=== PATIENT | male | born 1945 | race Caucasian/White ===

== ENCOUNTER → 2016-02-25 | Outpatient (CLI) | payer OTHER ==
[~2016-02-25] MED LIST: AMLO2.5T PO; ASPI81TA28 PO; METO1TAB69 PO; PANT1TAB48 PO; ROSU40TA PO
[2016-02-25 15:40] LABS: BLOOD UREA NITROGEN 14 mg/dl (7-18)
--- NOTE | 2016-02-25 15:44 | DIAGNOSTIC IMAGING REPORT ---
CT SCAN OF THE ABDOMEN AND PELVIS WITHOUT CONTRAST CLINICAL HISTORY: FLANK PAIN, HEMATURIA COMPARISON STUDY: No previous studies for comparison. TECHNIQUE: CT scan of the abdomen and pelvis was performed from the lung bases to the proximal femurs. Images are reviewed in the axial, sagittal, and coronal planes. IV contrast was not administered for this examination. CT DOSE: 505.13 mGy.cm FINDINGS: Lower chest: There are minor basilar atelectatic changes. Liver: There is scattered hepatic hypodensities the largest of which approach water attenuation likely represent cysts. Gallbladder: Unremarkable. Spleen: Normal in size and attenuation. Pancreas: Unremarkable. Adrenal glands: Unremarkable. Kidneys: There is a 2 mm nonobstructing upper pole left renal calculus. There is left-sided hydronephrosis and perinephric stranding. There is left-sided ureteral dilatation. There is a 2 mm nonobstructing lower pole right renal calculus. Evaluation the pelvis is unfortunately limited due to streak artifact from a total left hip arthroplasty. There is a suspected 3 mm distal left ureteral calculus. Bowel: There are no transition zones indicate bowel obstruction. The appendix appears normal. Mildly prominent fluid-filled small bowel loops likely indicating a ileus. There are multiple sigmoid diverticula present. There is minimal stranding within the perisigmoid fat. I suspect that this is secondary to periureteral edema as opposed to diverticulitis.. Peritoneum: There is no intraperitoneal free air or abdominal ascites. Vasculature: The abdominal aorta is normal in course and caliber. Adenopathy: None. Pelvic viscera: The bladder, and pelvic viscera are unremarkable. Skeletal structures: No destructive osseous lesions are seen. IMPRESSION: 1. Bilateral nephrolithiasis 2. Left-sided hydronephrosis and hydroureter 3. Probable 3 mm distal left ureteral calculus. (Pelvis partially obscured due to artifact from total left hip arthroplasty) 4. Extensive diverticulosis. Minor infiltration of the peridiverticular fat is likely secondary periureteral edema as opposed to diverticulitis 5. Normal appendix 6. Suspected mild ileus. There are no transition zones to indicate a bowel obstruction. No free air. Electronically signed by: Sonny Reynoso M.D. 02/25/2016 3:42 PM Dictated Date/Time: 02/25/2016 3:32 PM
== END | disposition home or self-care (01) ==
LOC: C.CTS 14:32
PROVIDERS: ATTEND Family Medicine
DX: R31.9 Hematuria, unspecified (principal); N20.0 Calculus of kidney; N13.30 Unspecified hydronephrosis; N13.4 Hydroureter; K57.90 Diverticulosis of intestine, part unspecified, without perforation or abscess without bleeding

== ENCOUNTER 2016-08-29 23:35 | Inpatient (IN) | payer OTHER ==
[~2016-08-29] VITALS: Ht 154.9 cm; Wt 75.3 kg
[~2016-08-29 23:35] MED LIST changes: -METO1TAB69 PO; -ROSU40TA PO
[2016-08-29] MEDS ORDERED: SODIUM CHLORIDE 0.9% 1000ML 1,000 ML IV STA (23:50)
[2016-08-29] MEDS ORDERED: SODIUM CHLORIDE 0.9% 250ML 250 ML IV STA (23:50)
[2016-08-29] MEDS ORDERED: MoRPHine SULFATE 4 MG/ML 1 ML CARP\\VIAL IV STA (23:50)
[2016-08-29] MEDS ORDERED: ONDANSETRON INJ 2 MG/ML 2 ML VIAL IV STA (23:50)
[2016-08-30] MEDS ORDERED: OPTIRAY 320 IV PRN
[2016-08-30 00:01] LABS: BASO % 0.2 %; BASO ABS # 0.02 K/uL (0-0.2); COMPLETE YES; EOS % 1.5 %; HEMATOCRIT 45.5 % (42-52); IG% 0.2 %; LYMPH % 19.4 %; LYMPH ABS # 1.93 K/uL (1.2-3.4); MEAN CELL VOLUME 85.2 fL (80-100); MEAN CORPUSCULAR HEMOGLOBIN 27.9 pg (25-34); MEAN CORPUSCULAR HGB CONC 32.7 g/dl (32-36); MEAN PLATELET VOLUME 10.5 fL (7.4-10.4); MONO % 4.1 %; NEUT % 74.6 %; PLATELET COUNT 210 K/uL (130-400); RED BLOOD COUNT 5.34 M/uL (4.7-6.1); WHITE BLOOD COUNT 9.95 K/uL (4.8-10.8)
[2016-08-30 00:04] LABS: URINE APPEARANCE CLEAR (CLEAR); URINE BILIRUBIN NEG (NEG); URINE COLOR YELLOW; URINE NITRITE NEG (NEG); URINE PH 6.5 (4.5-7.5); URINE SPECIFIC GRAVITY 1.014 (1.000-1.030); UROBILINOGEN NEG (NEG)
[2016-08-30 00:05] LABS: MANUAL MICROSCOPIC REQUIRED? NO; REVIEW REQ? NO
[2016-08-30 00:20] LABS: ISTAT CREATININE 1.4 mg/dl (0.6-1.3); ISTAT HEMOGLOBIN 16.3 g/dl (14.0-18.0); ISTAT IONIZED CALCIUM 1.15 mmol/l (1.12-1.32)
[2016-08-30 00:21] LABS: ALT/SGPT 88 U/L (12-78); BLOOD UREA NITROGEN 20 mg/dl (7-18); BUN/CREATININE RATIO 13.5 (10-20); CALCIUM 8.5 mg/dl (8.5-10.1); CARBON DIOXIDE 26 mmol/L (21-32); CHLORIDE 108 mmol/L (98-107); GLUCOSE 124 mg/dl (70-99); POTASSIUM 4.1 mmol/L (3.5-5.1); SODIUM 141 mmol/L (136-145)
[2016-08-30 00:23] LABS: ALKALINE PHOSPHATASE 115 U/L (45-117); AST/SGOT 43 U/L (15-37)
[2016-08-30] MEDS ORDERED: HYDROmorphone INJ 1 MG/ML SYR IV STA ×2 (00:26→01:44)
--- NOTE | 2016-08-30 00:31 | EMERGENCY ROOM VISIT NOTE ---
ED Visit Note First contact with patient: 23:44 This Patient was discussed with the physician casino assistant manager, ROEL Bowen. The pertinent historical and physical exam findings were confirmed. I agree with the studies ordered and with the interpretations of these studies. I agree with the disposition and care plan.
--- NOTE | 2016-08-30 01:20 | EMERGENCY ROOM VISIT NOTE ---
History First contact with patient: 23:44 Chief Complaint: ABDOMINAL PAIN Stated Complaint: STOMACH PAIN Nursing Triage Summary: Pt to triage in wheelchair with . Pt c/o fatigue, nausea, headaches, abd pain, diarrhea and dehydration. denies vomiting. Ongoing since last night, worsening today. "She's always is sick". hx of Liver complications, rheumatoid arthritis, Hep C, resp problems. GI appointment on for liver US History of Present Illness The patient is a 71 year old male who presents to the Emergency Room with complaints of left lower quadrant pain is progressively getting worse for the past several hours described as aching, ranging in severity 8 out of 10. Nothing makes it better or worse. No history of similar symptoms in the past. Patient denies chest pain, dyspnea, fever, chills, vomiting, diarrhea, back pain , urinary symptoms, testicular pain, penile pain. Normal colonoscopy in the past. No history diverticulitis. He has a history kidney stones but this feels different and sees Dr. Sanchez. Review of Systems See HPI for pertinent positives & negatives. A total of 10 systems reviewed and were otherwise negative. Past Medical/Surgical History Medical Problems: (1) Hiatal hernia (2) Hypertension (3) Normal colonoscopy (4) NSTEMI (non-ST elevated myocardial infarction) Surgical Problems: (1) H/O esophagogastroduodenoscopy (2) H/O total hip arthroplasty (3) History of carpal tunnel surgery CABG, hyperlipidemia Family History Diabetes mellitus MOTHER FH: heart disease FATHER MOTHER Social History Smoking Status: Never Smoker Drug Use: none Marital Status: Housing Status: lives with family Occupation Status: employed Current/Historical Medications Scheduled Amlodipine (Norvasc), 2.5 MG PO DAILY Aspirin (Aspirin Ec), 81 MG PO DAILY Pantoprazole (Protonix), 40 MG PO QAM Allergies Coded Allergies: Nickel (Verified Allergy, Intermediate, RASH, 07/02/15) Physical Exam Vital Signs Date Time Temp Pulse Resp B/P (MAP) Pulse Ox O2 Delivery O2 Flow Rate FiO2 08/30/16 01:03 80 17 186/104 92 Room Air 08/30/16 00:25 58 18 203/110 95 Room Air 08/29/16 23:55 71 08/29/16 23:54 Room Air 08/29/16 23:39 36.5 65 18 212/99 98 Room Air Physical Exam VITALS: Vitals are noted on the nurse's note and reviewed by myself. Vital signs hypertensive GENERAL: Pleasant male in obvious pain, nondiaphoretic, well-developed well- nourished. SKIN: The skin was without rashes, erythema, edema, or bruising. There is no tenting of the skin. Capillary reflex less than 2 seconds. HEAD: Normocephalic atraumatic. EARS: External auditory canals clear, tympanic membranes pearly luna without erythema or effusion bilaterally. EYES: Pupils equal round and reactive to light and accommodation. Conjunctivae without injection, sclerae without icterus. Extraocular movements intact. NOSE: Patent, turbinates without inflammation or discharge. MOUTH: Mucous membranes moist. Pharynx without erythema or exudate. Uvula midline. Airway patent. Tongue does not deviate. NECK: Supple without nuchal rigidity. No lymphadenopathy. No thyromegaly. Cervical spine is nontender. No JVD. HEART: Regular rate and rhythm LUNGS: Clear to auscultation bilaterally without wheezes, rales or rhonchi. No dullness to percussion. No retractions or accessory muscle use. ABDOMEN: Positive bowel sounds x 4. Normal tympanic percussion. Soft, tender to palpation left lower quadrant, no CVA tenderness, without masses or organomegaly. Roca sign negative. No guarding or rebound tenderness. MUSCULOSKELETAL: No muscle atrophy, erythema, or edema noted. NEURO: Patient was alert and oriented to person place and time. Normal sensation to light and sharp touch. No focal neurological deficits. Medical Decision & Procedures Laboratory Results 08/29/16 23:50 Red Blood Count 5.34, Mean Corpuscular Volume 85.2, Mean Corpuscular Hemoglobin 27.9, Mean Corpuscular Hemoglobin Concent 32.7, Mean Platelet Volume 10.5, Neutrophils (%) (Auto) 74.6, Lymphocytes (%) (Auto) 19.4, Monocytes (%) (Auto) 4.1, Eosinophils (%) (Auto) 1.5, Basophils (%) (Auto) 0.2, Neutrophils # (Auto) 7.42, Lymphocytes # (Auto) 1.93, Monocytes # (Auto) 0.41, Eosinophils # (Auto) 0.15, Basophils # (Auto) 0.02 08/29/16 23:50 Test 08/29/16 00:00 08/29/16 23:50 08/29/16 23:54 08/30/16 00:08 Urine Color YELLOW Urine Appearance CLEAR (CLEAR) Urine pH 6.5 (4.5-7.5) Urine Specific [place] 1.014 (1.000-1.030) Urine Protein 3+ (NEG) Urine Glucose (UA) NEG (NEG) Urine Ketones NEG (NEG) Urine Occult Blood 1+ (NEG) Urine Nitrite NEG (NEG) Urine Bilirubin NEG (NEG) Urine Urobilinogen NEG (NEG) Urine Leukocyte Esterase NEG (NEG) Urine WBC (Auto) 1-5 /hpf (0-5) Urine RBC (Auto) 0-4 /hpf (0-4) Urine Hyaline Casts (Auto) 0 /lpf (0-5) Urine Epithelial Cells (Auto) 5-10 /lpf (0-5) Urine Bacteria (Auto) NEG (NEG) White Blood Count 9.95 K/uL (4.8-10.8) Red Blood Count 5.34 M/uL (4.7-6.1) Hemoglobin 14.9 g/dL (14.0-18.0) Hematocrit 45.5 % (42-52) Mean Corpuscular Volume 85.2 fL (80-100) Mean Corpuscular Hemoglobin 27.9 pg (25-34) Mean Corpuscular Hemoglobin Concent 32.7 g/dl (32-36) Platelet Count 210 K/uL (130-400) Mean Platelet Volume 10.5 fL (7.4-10.4) Neutrophils (%) (Auto) 74.6 % Lymphocytes (%) (Auto) 19.4 % Monocytes (%) (Auto) 4.1 % Eosinophils (%) (Auto) 1.5 % Basophils (%) (Auto) 0.2 % Neutrophils # (Auto) 7.42 K/uL (1.4-6.5) Lymphocytes # (Auto) 1.93 K/uL (1.2-3.4) Monocytes # (Auto) 0.41 K/uL (0.11-0.59) Eosinophils # (Auto) 0.15 K/uL (0-0.5) Basophils # (Auto) 0.02 K/uL (0-0.2) RDW Standard Deviation 46.1 fL (36.4-46.3) RDW Coefficient of Variation 14.8 % (11.5-14.5) Immature Granulocyte % (Auto) 0.2 % Immature Granulocyte # (Auto) 0.02 K/uL (0.00-0.02) Est Creatinine Clear Calc Drug Dose 40.4 ml/min Estimated GFR () 54.3 Estimated GFR (Non- 46.8 BUN/Creatinine Ratio 13.5 (10-20) Calcium Level 8.5 mg/dl (8.5-10.1) Total Bilirubin 0.5 mg/dl (0.2-1) Direct Bilirubin < 0.1 mg/dl (0-0.2) Aspartate Amino Transf (AST/SGOT) 43 U/L (15-37) Alanine Aminotransferase (ALT/SGPT) 88 U/L (12-78) Alkaline Phosphatase 115 U/L (45-117) Total Protein 7.6 gm/dl (6.4-8.2) Albumin 3.8 gm/dl (3.4-5.0) Lipase 115 U/L (73-393) Bedside Hemoglobin 16.3 g/dl (14.0-18.0) Bedside Hematocrit 48 % (42-52) Bedside Sodium 142 mEq/L (135-144) Bedside Potassium 4.1 mEq/L (3.3-5.0) Bedside Chloride 103 mEq/L (101-112) Bedside Total CO2 25 mEq/l (24-31) Anion Gap 19.0 mmol/L (16-25) Bedside Blood Urea Nitrogen 20 mg/dl (7-18) Bedside Creatinine 1.4 mg/dl (0.6-1.3) Bedside Glucose (other) 127 mg/dl (70-99) Bedside Ionized Calcium (Emmanuel) 1.15 mmol/l (1.12-1.32) Bedside Lactic Acid Venous 1.10 mmol/L (0.90-1.70) Medications Administered Medications (Trade) Dose Ordered Sig/Theresa Route Start Time Stop Time Status Last Admin Dose Admin Morphine Sulfate (MoRPHine SULFATE INJ) 4 mg NOW STAT IV 08/29/16 23:50 08/29/16 23:52 DC 08/30/16 00:05 4 MG Ondansetron HCl (Zofran Inj) 4 mg NOW STAT IV 08/29/16 23:50 08/29/16 23:52 DC 08/30/16 00:05 4 MG Sodium Chloride 250 ml @ 999 mls/hr Q16M STAT IV 08/29/16 23:50 08/30/16 00:05 DC 08/30/16 00:05 999 MLS/HR Sodium Chloride 1,000 ml @ 125 mls/hr Q8H STAT IV 08/29/16 23:50 08/30/16 07:49 08/30/16 00:32 125 MLS/HR Hydromorphone HCl (Dilaudid Inj) 1 mg NOW STAT IV 08/30/16 00:26 08/30/16 00:27 DC 08/30/16 00:32 1 MG ED Course Prior records/ancillary studies reviewed. Triage Nursing notes reviewed. Additional history obtained from family. The patient's history was concerning for abdominal pain. Differential diagnosis: Etiologies such as appendicitis, diverticulitis, PUD, biliary pathology, UTI, pancreatitis, obstruction, mesenteric ischemia, aortic pathology, infections, inflammatory bowel disease, renal colic, as well as others were entertained. Physical examination findings: As above. ER treatment provided: morohine, zofran, NSS On reassessment the patient felt better. Diagnostics interpreted by me: The labs revealed stable H&H. Negative lactic acid Imaging studies: CT ABDOMEN & PELVIS: Comparison: Pelvic radiograph February 12, 2008 Impression: Recently passed left renal or ureteral calculi as there are no calculi present however there is significant perinephric and periureteral edema with moderate hydronephrosis. This may also represent pyelonephritis. Incidentals: Bilateral atelectasis. Mild cardiomegaly. Right liver contains left hepatic simple cysts measuring up to 2.3 cm and a too small to characterize right hepatic hypodensity Spleen, adrenals, pancreas and gallbladder are normal. Right kidney has multiple too small to characterize hypodensities. No renal calculi. No hydronephrosis. Bowel is normal. Appendix is normal. Diverticulosis without acute inflammation. Vasculature is unremarkable Fat containing left greater than right inguinal hernias. Left hip arthroplasty. Radiologist: Josh Aleman M.D. Consultation: A consultation was placed with the hospitalist, Dr. Aranda. The case was discussed and diagnostics were reviewed. The patient was evaluated in the ER for further treatment. Patient was still in severe amount of pain. He'll be evaluated by medicine for possible admission. He is given a few rounds of pain meds. CTs concerning for recent passed or still having kidney stone. He has a history kidney stones. He follows with Dr. Sanchez. By the evaluation outlined above emergent etiologies such as appendicitis, diverticulitis, PUD, biliary pathology, UTI, pancreatitis, obstruction, mesenteric ischemia, aortic pathology, infections, inflammatory bowel disease, as well as others were deemed relatively unlikely. The pt informed about the findings as listed above. All questions were answered and pleased with the treatment. case reviewed with my Attending Medical Decision as above Impression Primary Impression: Renal colic on left side Additional Impressions: Kidney stone Intractable abdominal pain Departure Information Dispostion Being Evaluated By Hospitalist Condition FAIR Referrals Sera Ahumada,Addie. (PCP) Patient Instructions My [facility] Problem Qualifiers
[2016-08-30] MEDS ORDERED: ROSU40TA PO (01:51)
[2016-08-30] MEDS ORDERED: METO1TAB69 PO (01:51)
[2016-08-30] MEDS ORDERED: OXYCODONE/ACETAMINOPHEN 7.5-325 TAB PO PRN (02:00)
[2016-08-30] MEDS ORDERED: HYDROmorphone INJ 0.5 MG/0.5 ML SYR IV PRN (02:00)
[2016-08-30] MEDS ORDERED: ONDANSETRON INJ 2 MG/ML 2 ML VIAL IV PRN (02:00)
[2016-08-30] MEDS ORDERED: CLONIDINE HCL 0.1 MG TAB PO PRN (02:00)
[2016-08-30] MEDS ORDERED: POLYETHYLENE (MIRALAX) 17 GM PACK PO PRN (02:00)
[2016-08-30] MEDS ORDERED: ACETAMINOPHEN 325 MG TAB PO PRN (02:00)
[2016-08-30] MEDS ORDERED: CLONIDINE HCL 0.1 MG TAB PO STA (02:03)
[2016-08-30] MEDS ORDERED: OXYCODONE/ACETAMINOPHEN 7.5-325 TAB PO STA (02:05)
[2016-08-30 02:35] VITALS: BP 208/96; PULSE 69; TEMP 36.6; O2SAT 95
[2016-08-30 02:45] VITALS: Ht 154.9 cm; Wt 75.3 kg
[2016-08-30] MEDS ORDERED: TAMSULOSIN HCL 0.4 MG CAP PO SCH (02:45)
[2016-08-30 03:02] VITALS: BP 194/89; PULSE 74
[2016-08-30] MEDS: SODIUM CHLORIDE 0.9% 1000ML 1,000 ML IV SCH ×3 (03:05→19:09)
[2016-08-30 04:02] VITALS: BP 172/89; PULSE 73
--- NOTE | 2016-08-30 05:45 | History and Physical ---
History & Physical Date & Time of Service: Aug 30, 2016 at 02:01 Chief Complaint: Stomach Pain Primary Care Physician: Sera Ahumada D.O. History of Present Illness Source: patient, spouse, clinic records, hospital records 71 yo M with CAD and h/o nephrolithiasis presents with acute LLQ and L flank pain that began tonight around 11pm as he was heading to bed. The pain progressed and was severe; he was unable to qualify this further. He had a recent passage of kidney stone in Feb 2016 and was familiar with the feeling, so knew he needed to come to the ER. He denies any dysuria, hematuria, fevers or chills, nausea, vomiting, diarrhea, blood per rectum, headaches, chest pain or shortness of breath. He does report some chills and profuse sweating that was present with onset of the pain. He tried to take a shower but this didn't help the situation. He was seen by Dr. Sanchez as an outpatient in Feb 2016 and adding lemon or citrus juice was recommended as well as increasing his daily water intake. He states that he drinks lemonade but he is "not a big water drinker." He received morphine, dilaudid and IVF in the ER and is already feeling much better. His blood pressure was >200 systolic on arrival and is now down to 180 systolic with a pain level of 5/10. He reports only taking Toprol XL for BP and states that it normally runs normal when checked. CT a/p revealed evidence of a recently passed stone with some evidence of perinephric and periureteral stranding. The patient denies seeing a stone. Past Medical/Surgical History Medical Problems: (1) CAD (coronary artery disease) Status: Chronic (2) GERD (gastroesophageal reflux disease) Status: Chronic (3) Hiatal hernia Status: Chronic (4) HTN (hypertension) Status: Chronic (5) Hyperlipidemia Status: Chronic (6) Hypertension Status: Chronic (7) Normal colonoscopy Permanent Comment: repeat 2018 Status: Chronic (8) NSTEMI (non-ST elevated myocardial infarction) Status: Chronic Surgical Problems: (1) H/O esophagogastroduodenoscopy Status: Chronic (2) H/O total hip arthroplasty Permanent Comment: left Status: Chronic (3) History of carpal tunnel surgery Status: Chronic (4) S/P CABG x 3 Status: Chronic Family History Diabetes mellitus MOTHER FH: heart disease FATHER MOTHER Social History Smoking Status: Never Smoker Smokeless Tobacco Use: No Alcohol Use: occasionally Drug Use: none Marital Status: Housing status: lives with family 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) Immunizations History of Influenza Vaccine: Unknown History of Tetanus Vaccine?: Yes Tetanus Immunization Date: May 11, 2007 History of Pneumococcal: Unknown History of Hepatitis B Vaccine: No Multi-Drug Resistant Organisms History of MDRO: No Allergies Coded Allergies: Nickel (Verified Allergy, Intermediate, RASH, 08/30/16) Home Medications Scheduled Aspirin (Aspirin Ec), 81 MG PO DAILY Metoprolol Succ (Toprol Xl) (Toprol-Xl ), 100 MG PO DAILY Rosuvastatin Calcium (Crestor), 20 MG PO DAILY Review of Systems At least ten systems were reviewed and negative except as indicated in HPI Physical Exam Vital Signs Date Time Temp Pulse Resp B/P (MAP) Pulse Ox O2 Delivery O2 Flow Rate FiO2 08/30/16 01:03 80 17 186/104 92 Room Air 08/30/16 00:25 58 18 203/110 95 Room Air 08/29/16 23:55 71 08/29/16 23:54 Room Air 08/29/16 23:39 36.5 65 18 212/99 98 Room Air GEN: WNWD, in no acute distress, alert and appropriate HEENT: NC/AT, PERRL, normal sclerae, MMM, pharynx non-acute, no LAD CARDIO: reg rate, S1/2 heard without m/g/r LUNGS: CTA bilaterally, no crackles, rales or wheezes, good diaphragmatic excursion ABD: soft, mild TTP in LUQ>LLQ, non-distended, no rebound or guarding, +BS, + CVA tenderness on the L which is mild. EXTREMITY: RP and DP palpable 2+ bilat, no LE swelling or edema, extremities are warm and well-perfused NEURO: CN 2-12 grossly intact, sensation intact throughout MUSC: 5/5 strength throughout, no focal deficits SKIN: warm and dry Diagnostics Laboratory Results 08/29/16 23:50 Red Blood Count 5.34, Mean Corpuscular Volume 85.2, Mean Corpuscular Hemoglobin 27.9, Mean Corpuscular Hemoglobin Concent 32.7, Mean Platelet Volume 10.5, Neutrophils (%) (Auto) 74.6, Lymphocytes (%) (Auto) 19.4, Monocytes (%) (Auto) 4.1, Eosinophils (%) (Auto) 1.5, Basophils (%) (Auto) 0.2, Neutrophils # (Auto) 7.42, Lymphocytes # (Auto) 1.93, Monocytes # (Auto) 0.41, Eosinophils # (Auto) 0.15, Basophils # (Auto) 0.02 08/29/16 23:50 Test 08/29/16 00:00 08/29/16 23:50 08/29/16 23:54 08/30/16 00:08 Urine Color YELLOW Urine Appearance CLEAR (CLEAR) Urine pH 6.5 (4.5-7.5) Urine Specific [place] 1.014 (1.000-1.030) Urine Protein 3+ (NEG) Urine Glucose (UA) NEG (NEG) Urine Ketones NEG (NEG) Urine Occult Blood 1+ (NEG) Urine Nitrite NEG (NEG) Urine Bilirubin NEG (NEG) Urine Urobilinogen NEG (NEG) Urine Leukocyte Esterase NEG (NEG) Urine WBC (Auto) 1-5 /hpf (0-5) Urine RBC (Auto) 0-4 /hpf (0-4) Urine Hyaline Casts (Auto) 0 /lpf (0-5) Urine Epithelial Cells (Auto) 5-10 /lpf (0-5) Urine Bacteria (Auto) NEG (NEG) White Blood Count 9.95 K/uL (4.8-10.8) Red Blood Count 5.34 M/uL (4.7-6.1) Hemoglobin 14.9 g/dL (14.0-18.0) Hematocrit 45.5 % (42-52) Mean Corpuscular Volume 85.2 fL (80-100) Mean Corpuscular Hemoglobin 27.9 pg (25-34) Mean Corpuscular Hemoglobin Concent 32.7 g/dl (32-36) Platelet Count 210 K/uL (130-400) Mean Platelet Volume 10.5 fL (7.4-10.4) Neutrophils (%) (Auto) 74.6 % Lymphocytes (%) (Auto) 19.4 % Monocytes (%) (Auto) 4.1 % Eosinophils (%) (Auto) 1.5 % Basophils (%) (Auto) 0.2 % Neutrophils # (Auto) 7.42 K/uL (1.4-6.5) Lymphocytes # (Auto) 1.93 K/uL (1.2-3.4) Monocytes # (Auto) 0.41 K/uL (0.11-0.59) Eosinophils # (Auto) 0.15 K/uL (0-0.5) Basophils # (Auto) 0.02 K/uL (0-0.2) RDW Standard Deviation 46.1 fL (36.4-46.3) RDW Coefficient of Variation 14.8 % (11.5-14.5) Immature Granulocyte % (Auto) 0.2 % Immature Granulocyte # (Auto) 0.02 K/uL (0.00-0.02) Est Creatinine Clear Calc Drug Dose 40.4 ml/min Estimated GFR () 54.3 Estimated GFR (Non- 46.8 BUN/Creatinine Ratio 13.5 (10-20) Calcium Level 8.5 mg/dl (8.5-10.1) Total Bilirubin 0.5 mg/dl (0.2-1) Direct Bilirubin < 0.1 mg/dl (0-0.2) Aspartate Amino Transf (AST/SGOT) 43 U/L (15-37) Alanine Aminotransferase (ALT/SGPT) 88 U/L (12-78) Alkaline Phosphatase 115 U/L (45-117) Total Protein 7.6 gm/dl (6.4-8.2) Albumin 3.8 gm/dl (3.4-5.0) Lipase 115 U/L (73-393) Bedside Hemoglobin 16.3 g/dl (14.0-18.0) Bedside Hematocrit 48 % (42-52) Bedside Sodium 142 mEq/L (135-144) Bedside Potassium 4.1 mEq/L (3.3-5.0) Bedside Chloride 103 mEq/L (101-112) Bedside Total CO2 25 mEq/l (24-31) Anion Gap 19.0 mmol/L (16-25) Bedside Blood Urea Nitrogen 20 mg/dl (7-18) Bedside Creatinine 1.4 mg/dl (0.6-1.3) Bedside Glucose (other) 127 mg/dl (70-99) Bedside Ionized Calcium (Emmanuel) 1.15 mmol/l (1.12-1.32) Bedside Lactic Acid Venous 1.10 mmol/L (0.90-1.70) Test 08/30/16 04:44 Results Past 24 Hours Test 08/29/16 23:50 08/29/16 23:54 08/30/16 00:08 Range/Units White Blood Count 9.95 4.8-10.8 K/uL Red Blood Count 5.34 4.7-6.1 M/uL Hemoglobin 14.9 14.0-18.0 g/dL Hematocrit 45.5 42-52 % Mean Corpuscular Volume 85.2 80-100 fL Mean Corpuscular Hemoglobin 27.9 25-34 pg Mean Corpuscular Hemoglobin Concent 32.7 32-36 g/dl Platelet Count 210 130-400 K/uL Mean Platelet Volume 10.5 7.4-10.4 fL Neutrophils (%) (Auto) 74.6 % Lymphocytes (%) (Auto) 19.4 % Monocytes (%) (Auto) 4.1 % Eosinophils (%) (Auto) 1.5 % Basophils (%) (Auto) 0.2 % Neutrophils # (Auto) 7.42 1.4-6.5 K/uL Lymphocytes # (Auto) 1.93 1.2-3.4 K/uL Monocytes # (Auto) 0.41 0.11-0.59 K/uL Eosinophils # (Auto) 0.15 0-0.5 K/uL Basophils # (Auto) 0.02 0-0.2 K/uL RDW Standard Deviation 46.1 36.4-46.3 fL RDW Coefficient of Variation 14.8 11.5-14.5 % Immature Granulocyte % (Auto) 0.2 % Immature Granulocyte # (Auto) 0.02 0.00-0.02 K/uL Sodium Level 141 136-145 mmol/L Potassium Level 4.1 3.5-5.1 mmol/L Chloride Level 108 98-107 mmol/L Carbon Dioxide Level 26 21-32 mmol/L Anion Gap 7.0 19.0 16-25 mmol/L Blood Urea Nitrogen 20 7-18 mg/dl Creatinine 1.50 0.60-1.40 mg/dl Est Creatinine Clear Calc Drug Dose 40.4 ml/min Estimated GFR () 54.3 Estimated GFR (Non- 46.8 BUN/Creatinine Ratio 13.5 10-20 Random Glucose 124 70-99 mg/dl Calcium Level 8.5 8.5-10.1 mg/dl Total Bilirubin 0.5 0.2-1 mg/dl Direct Bilirubin < 0.1 0-0.2 mg/dl Aspartate Amino Transf (AST/SGOT) 43 15-37 U/L Alanine Aminotransferase (ALT/SGPT) 88 12-78 U/L Alkaline Phosphatase 115 45-117 U/L Total Protein 7.6 6.4-8.2 gm/dl Albumin 3.8 3.4-5.0 gm/dl Lipase 115 73-393 U/L Bedside Hemoglobin 16.3 14.0-18.0 g/dl Bedside Hematocrit 48 42-52 % Bedside Sodium 142 135-144 mEq/L Bedside Potassium 4.1 3.3-5.0 mEq/L Bedside Chloride 103 101-112 mEq/L Bedside Total CO2 25 24-31 mEq/l Bedside Blood Urea Nitrogen 20 7-18 mg/dl Bedside Creatinine 1.4 0.6-1.3 mg/dl Bedside Glucose (other) 127 70-99 mg/dl Bedside Ionized Calcium (Emmanuel) 1.15 1.12-1.32 mmol/l Bedside Lactic Acid Venous 1.10 0.90-1.70 mmol/L Diagnostic Radiology CT a/p: Recently passed left renal or ureteral calcli as there are no calculi present however there is significant perinephric and periureteral edema with moderate hydronephrosis. This may also represent pyelonephritis. Impression Assessment and Plan 71 yo M with h/o nephrolithiasis presents with acute LLQ and L flank pain found to has recently passed a kidney stone 1. L renal colic-improved with dilaudid and IVF in the ER. Acute onset, no stone was seen. CVA tenderness in absence of fevers, chills, dysuria, urinary urgency or other infectious symptom. Strain all urine. Cont NSS, start Flomax in case of retained stone. Aggressive pain control. 2. Hypertensive urgency-initial BP was over 200 systolic. Documented outpatient BP ranges 120-160 systolic. Clonidine given and started PRN. Cont aggressive pain control. 3. ARIELLE-creat 1/5 with normal function at baseline. Poss 2/2 obstruction with evidence of hydronephrosis. Cont NSS and monitor creatinine now that stone has supposedly passed. 4. CAD-stable, cont medical management with Crestor, ASA and Toprol XL DVT proph-Lovenox FULL CODE [facility]po[facility]Med[facility]urg [facility] Med/Surg Resuscitation Status FULL RESUSCITATION VTE Prophylaxis VTE Risk Assessment Done? Y/N: Yes Risk Level: Moderate Given or contraindicated: Enoxaparin (Lovenox)SQ
[2016-08-30 06:39] LABS: PROTHROMBIN TIME (PATIENT) 11.1 SECONDS (9.0-12.0)
[2016-08-30 07:08] VITALS: BP 125/77; PULSE 59; TEMP 36.4; O2SAT 96
--- NOTE | 2016-08-30 07:22 | DIAGNOSTIC IMAGING REPORT ---
ABD/PELVIS IV CONTRAST ONLY CLINICAL HISTORY: 71 years-old Male presenting with llq pain. TECHNIQUE: Multidetector CT of the abdomen and pelvis was performed after the administration of intravenous contrast. IV contrast: 115 mL of Optiray 320. COMPARISON: 02/25/2016. CT DOSE: The estimated cumulative dose is 450.82 mGy.cm. FINDINGS: [employer] Team Member topogram: Total left hip arthroplasty and median sternotomy wires noted. Lung bases: Mosaic attenuation at the lung bases with more dependent groundglass opacity. Mild bronchial wall thickening in the right lower lobe may be present. Multichamber enlargement of the heart. Postsurgical changes of coronary artery bypass. No pericardial or pleural effusion. Liver: Normal morphology. Multiple well-defined hypodensities scattered throughout both lobes of the liver, indeterminate but likely hepatic cysts or hamartomas. Patent hepatic vasculature. Biliary: Mild intrahepatic biliary ductal dilatation is favored over periportal edema. No extrahepatic biliary ductal dilatation. No obstructing mass or stone. Normal gallbladder. Pancreas: Mild parenchymal atrophy. Spleen: Normal. Adrenal glands: Normal. Kidneys and ureters: Mild dilatation of the left urinary collecting system with extensive left perinephric fluid. Delayed excretion of contrast from the left kidney. The left ureter is mildly dilated with periureteral fat stranding and urothelial thickening noted. Extensive beam hardening artifact arising from the left total hip prosthesis limits evaluation of the distal left ureter for obstructing calculus. Right ureter normal. Few hypodensities noted in both kidneys, indeterminate but likely cysts. Gastrointestinal tract: Diverticulosis of the sigmoid and descending colon. Wall thickening of the sigmoid colon may suggest chronic diverticular disease given the absence of pericolonic inflammatory change. Normal appendix. No bowel obstruction. Small hiatal hernia. Peritoneal cavity: No free fluid or intraperitoneal gas. Bladder: Mildly thick walled bladder, which could suggest chronic outlet obstruction. Pelvic organs: Prostate enlargement likely secondary to benign prostatic hyperplasia. Vasculature: Atherosclerosis of the normal caliber abdominal aorta. IVC patent. Lymph nodes: No enlarged lymph nodes in the abdomen or pelvis. Abdominal wall: Small bilateral fat-containing hernias. Musculoskeletal: Left total hip arthroplasty without evidence of hardware complication. One of the iliac screws traverses through the dorsal lateral cortex of the left ilium into the gluteus minimus without significant effect. Multilevel degenerative changes of the lumbar spine. IMPRESSION: 1. Mild left hydronephrosis with extensive left perinephric fluid. Given the degree of perinephric fluid, this may suggest calyceal rupture. The presence of the left hip arthroplasty results in a significant artifact in the pelvis limiting evaluation of the distal left ureter. Within this limitation, hydroureteronephrosis with urothelial thickening and associated inflammatory changes most likely due to a recently passed stone. However, infection could also have this appearance. Correlate with urinalysis. 2. Bilateral atelectasis. The presence of mild wall thickening in the right lower lobe could also represent bronchitis and/or aspiration. 3. Cardiomegaly. 4. Diverticulosis. Electronically signed by: Teo Mendoza M.D. 08/30/2016 7:20 AM Dictated Date/Time: 08/30/2016 7:08 AM
[2016-08-30] MEDS: TAMSULOSIN HCL 0.4 MG CAP PO SCH (09:06)
[2016-08-30] MEDS: ROSUVASTATIN CALCIUM 20 MG TAB PO SCH (09:06)
[2016-08-30] MEDS: ASPIRIN 81 MG ECTAB PO SCH (09:06)
[2016-08-30] MEDS: METOPROLOL SUCC 50MG EXT REL TAB PO SCH (09:07)
[2016-08-30] MEDS: ENOXAPARIN 40 MG/0.4 ML SYR SQ SCH (09:10)
--- NOTE | 2016-08-30 13:54 | Progress Note ---
Internal Med Progress Note Date of Service: Aug 30, 2016. Provider Documentation: SUBJECTIVE: Seen and examined at bedside. State shaving generalized abdominal soreness. Nausea, vomiting resolved. Denies chest pain, SOB, palpitations, dizziness. Family at bedside. OBJECTIVE: Vital Signs-as noted below Physical Exam: General Appearance:Moderately built and nourished, no apparent distress Head: normocephalic, Atraumatic Eyes: normal inspection, EOMI, PERRL Neck: supple, Trachea midline Respiratory/Chest: Normal breath sounds, CTA Cardiovascular: S1, S2, No murmur Abdomen/GI:Soft, Mild tender generalized , Bowel sounds present Extremities/Musculoskelatal:normal inspection, no edema Neurologic/Psych:grossly no focal neurological deficits Skin: normal color, warm Lab data as noted below. ASSESSMENT & PLAN: Patient is a 71 yr male with h/o nephrolithiasis, CAD presents with acute LLQ and L flank pain. Left Hydronephrosis L renal colic: Improved likely secondary to passage of renal stone Continue IV Fluids, Flomax pain control Appreciate Urology Input Hypertensive urgency: Likely secondary to pain. Continue current meds Monitor ARIELLE: Likely secondary to obstruction secondary to above Continue NSS Monitor renal function CAD: stable Continue ASA, Statins and Toprol DVT Px: Lovenox Code Status: FULL CODE CT ABD: 1. Mild left hydronephrosis with extensive left perinephric fluid. Given the degree of perinephric fluid, this may suggest calyceal rupture. The presence of the left hip arthroplasty results in a significant artifact in the pelvis limiting evaluation of the distal left ureter. Within this limitation, hydroureteronephrosis with urothelial thickening and associated inflammatory changes most likely due to a recently passed stone. However, infection could also have this appearance. Correlate with urinalysis. 2. Bilateral atelectasis. The presence of mild wall thickening in the right lower lobe could also represent bronchitis and/or aspiration. 3. Cardiomegaly. 4. Diverticulosis. Vital Signs: Date Time Temp Pulse Resp B/P (MAP) Pulse Ox O2 Delivery O2 Flow Rate FiO2 08/30/16 07:25 Room Air 08/30/16 07:08 36.4 59 16 125/77 (93) 96 Room Air 08/30/16 04:02 73 172/89 (116) 08/30/16 03:02 74 194/89 (124) 08/30/16 02:57 Room Air 08/30/16 02:45 Room Air 08/30/16 02:35 36.6 69 16 208/96 (133) 95 Room Air 08/30/16 02:20 68 16 173/99 92 08/30/16 01:03 80 17 186/104 92 Room Air 08/30/16 00:25 58 18 203/110 95 Room Air 08/29/16 23:55 71 08/29/16 23:54 Room Air 08/29/16 23:39 36.5 65 18 212/99 98 Room Air Lab Results: Results Past 24 Hours Test 08/29/16 23:50 08/29/16 23:54 08/30/16 00:08 08/30/16 06:07 Range/Units White Blood Count 9.95 4.8-10.8 K/uL Red Blood Count 5.34 4.7-6.1 M/uL Hemoglobin 14.9 14.0-18.0 g/dL Hematocrit 45.5 42-52 % Mean Corpuscular Volume 85.2 80-100 fL Mean Corpuscular Hemoglobin 27.9 25-34 pg Mean Corpuscular Hemoglobin Concent 32.7 32-36 g/dl Platelet Count 210 130-400 K/uL Mean Platelet Volume 10.5 7.4-10.4 fL Neutrophils (%) (Auto) 74.6 % Lymphocytes (%) (Auto) 19.4 % Monocytes (%) (Auto) 4.1 % Eosinophils (%) (Auto) 1.5 % Basophils (%) (Auto) 0.2 % Neutrophils # (Auto) 7.42 1.4-6.5 K/uL Lymphocytes # (Auto) 1.93 1.2-3.4 K/uL Monocytes # (Auto) 0.41 0.11-0.59 K/uL Eosinophils # (Auto) 0.15 0-0.5 K/uL Basophils # (Auto) 0.02 0-0.2 K/uL RDW Standard Deviation 46.1 36.4-46.3 fL RDW Coefficient of Variation 14.8 11.5-14.5 % Immature Granulocyte % (Auto) 0.2 % Immature Granulocyte # (Auto) 0.02 0.00-0.02 K/uL Sodium Level 141 136-145 mmol/L Potassium Level 4.1 3.5-5.1 mmol/L Chloride Level 108 98-107 mmol/L Carbon Dioxide Level 26 21-32 mmol/L Anion Gap 7.0 19.0 16-25 mmol/L Blood Urea Nitrogen 20 7-18 mg/dl Creatinine 1.50 0.60-1.40 mg/dl Est Creatinine Clear Calc Drug Dose 40.4 ml/min Estimated GFR () 54.3 Estimated GFR (Non- 46.8 BUN/Creatinine Ratio 13.5 10-20 Random Glucose 124 70-99 mg/dl Calcium Level 8.5 8.5-10.1 mg/dl Total Bilirubin 0.5 0.2-1 mg/dl Direct Bilirubin < 0.1 0-0.2 mg/dl Aspartate Amino Transf (AST/SGOT) 43 15-37 U/L Alanine Aminotransferase (ALT/SGPT) 88 12-78 U/L Alkaline Phosphatase 115 45-117 U/L Total Protein 7.6 6.4-8.2 gm/dl Albumin 3.8 3.4-5.0 gm/dl Lipase 115 73-393 U/L Bedside Hemoglobin 16.3 14.0-18.0 g/dl Bedside Hematocrit 48 42-52 % Bedside Sodium 142 135-144 mEq/L Bedside Potassium 4.1 3.3-5.0 mEq/L Bedside Chloride 103 101-112 mEq/L Bedside Total CO2 25 24-31 mEq/l Bedside Blood Urea Nitrogen 20 7-18 mg/dl Bedside Creatinine 1.4 0.6-1.3 mg/dl Bedside Glucose (other) 127 70-99 mg/dl Bedside Ionized Calcium (Emmanuel) 1.15 1.12-1.32 mmol/l Bedside Lactic Acid Venous 1.10 0.90-1.70 mmol/L Prothrombin Time 11.1 9.0-12.0 SECONDS Prothromb Time International Ratio 1.0 0.9-1.1
[2016-08-30] MEDS ORDERED: MoRPHine SULFATE 2 MG/ML CARP IV PRN (15:00)
--- NOTE | 2016-08-30 15:16 | Urology Consultation ---
History General Date of Service: Aug 30, 2016. Chief Complaint: kidney stones Primary Care Physician: Sera Ahumada D.O. Pt seen a urologist before?: Yes If yes, why?: stones History of Present Illness I am asked by Dr Aranda to evaluate and treat patient for stones. He has passed 3 in his lifetime, one 20 yrs ago, one ajn 2016 and now a third. He had severe pain overnight and came to ER. he had associated nausea and emsis. Pain was both left flank and the left lower quadrant. This suggests the stone was in the distal rueter. He had a ct in ER and the stone was gone. His pain in the flank is gone and he just has some "soreness" in the low abdomen. He is voiding fine. NO fever when measured but during his severe colic attack he had sweats. Imaging Imaging: CT Laboratory Results Past 24 Hours Test 08/29/16 23:50 08/29/16 23:54 08/30/16 00:08 08/30/16 06:07 Range/Units White Blood Count 9.95 4.8-10.8 K/uL Red Blood Count 5.34 4.7-6.1 M/uL Hemoglobin 14.9 14.0-18.0 g/dL Hematocrit 45.5 42-52 % Mean Corpuscular Volume 85.2 80-100 fL Mean Corpuscular Hemoglobin 27.9 25-34 pg Mean Corpuscular Hemoglobin Concent 32.7 32-36 g/dl Platelet Count 210 130-400 K/uL Mean Platelet Volume 10.5 7.4-10.4 fL Neutrophils (%) (Auto) 74.6 % Lymphocytes (%) (Auto) 19.4 % Monocytes (%) (Auto) 4.1 % Eosinophils (%) (Auto) 1.5 % Basophils (%) (Auto) 0.2 % Neutrophils # (Auto) 7.42 1.4-6.5 K/uL Lymphocytes # (Auto) 1.93 1.2-3.4 K/uL Monocytes # (Auto) 0.41 0.11-0.59 K/uL Eosinophils # (Auto) 0.15 0-0.5 K/uL Basophils # (Auto) 0.02 0-0.2 K/uL RDW Standard Deviation 46.1 36.4-46.3 fL RDW Coefficient of Variation 14.8 11.5-14.5 % Immature Granulocyte % (Auto) 0.2 % Immature Granulocyte # (Auto) 0.02 0.00-0.02 K/uL Sodium Level 141 136-145 mmol/L Potassium Level 4.1 3.5-5.1 mmol/L Chloride Level 108 98-107 mmol/L Carbon Dioxide Level 26 21-32 mmol/L Anion Gap 7.0 19.0 16-25 mmol/L Blood Urea Nitrogen 20 7-18 mg/dl Creatinine 1.50 0.60-1.40 mg/dl Est Creatinine Clear Calc Drug Dose 40.4 ml/min Estimated GFR () 54.3 Estimated GFR (Non- 46.8 BUN/Creatinine Ratio 13.5 10-20 Random Glucose 124 70-99 mg/dl Calcium Level 8.5 8.5-10.1 mg/dl Total Bilirubin 0.5 0.2-1 mg/dl Direct Bilirubin < 0.1 0-0.2 mg/dl Aspartate Amino Transf (AST/SGOT) 43 15-37 U/L Alanine Aminotransferase (ALT/SGPT) 88 12-78 U/L Alkaline Phosphatase 115 45-117 U/L Total Protein 7.6 6.4-8.2 gm/dl Albumin 3.8 3.4-5.0 gm/dl Lipase 115 73-393 U/L Bedside Hemoglobin 16.3 14.0-18.0 g/dl Bedside Hematocrit 48 42-52 % Bedside Sodium 142 135-144 mEq/L Bedside Potassium 4.1 3.3-5.0 mEq/L Bedside Chloride 103 101-112 mEq/L Bedside Total CO2 25 24-31 mEq/l Bedside Blood Urea Nitrogen 20 7-18 mg/dl Bedside Creatinine 1.4 0.6-1.3 mg/dl Bedside Glucose (other) 127 70-99 mg/dl Bedside Ionized Calcium (Emmanuel) 1.15 1.12-1.32 mmol/l Bedside Lactic Acid Venous 1.10 0.90-1.70 mmol/L Prothrombin Time 11.1 9.0-12.0 SECONDS Prothromb Time International Ratio 1.0 0.9-1.1 Labs were reviewed and are within normal limits unless listed below. Labs are available in the chart and at 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) Immunizations History of Influenza Vaccine: Unknown History of Tetanus Vaccine?: Yes Tetanus Immunization Date: May 11, 2007 History of Pneumococcal: Unknown History of Hepatitis B Vaccine: No History of MDRO No Allergies Coded Allergies: Nickel (Verified Allergy, Intermediate, RASH, 08/30/16) Medications Home Medications: Home Meds and Scripts Medications Dose Route/Sig Max Daily Dose Days Date Category Toprol-Xl (Metoprolol Succinate) 100 Mg Tabcr 100 Mg PO DAILY 08/30/16 Reported Crestor (Rosuvastatin Calcium) 40 Mg Tab 20 Mg PO DAILY 08/30/16 Reported Aspirin Ec (Aspirin) 81 Mg Tab 81 Mg PO DAILY 07/02/15 Reported Inpatient Medications: Current Inpatient Medications Medications (Trade) Dose Ordered Sig/Theresa Route Start Time Stop Time Status Last Admin Dose Admin Ioversol (Optiray 320) 100 ml UD PRN IV 08/30/16 00:00 09/03/16 00:00 Enoxaparin Sodium (Lovenox Inj) 40 mg QAM SQ 08/30/16 09:00 09/29/16 08:59 08/30/16 09:10 40 MG Acetaminophen (Tylenol Tab) 650 mg Q4H PRN PO 08/30/16 02:00 09/29/16 01:59 Polyethylene (Miralax Powder Packet) 17 gm DAILY PRN PO 08/30/16 02:00 09/29/16 01:59 Ondansetron HCl (Zofran Inj) 4 mg Q6H PRN IV 08/30/16 02:00 09/29/16 01:59 Oxycodone/ Acetaminophen (Percocet 7.5-325MG Tab) 1 tab Q4H PRN PO 08/30/16 02:00 09/13/16 01:59 Tamsulosin HCl (Flomax Cap) 0.4 mg Q24H PO 08/30/16 09:00 09/29/16 08:59 08/30/16 09:06 0.4 MG Sodium Chloride 1,000 ml @ 125 mls/hr Q8H IV 08/30/16 02:45 08/30/16 18:44 08/30/16 10:51 125 MLS/HR Clonidine HCl (Catapres Tab) 0.1 mg Q6H PRN PO 08/30/16 02:00 09/29/16 01:59 Aspirin (Ecotrin Tab) 81 mg DAILY PO 08/30/16 09:00 09/29/16 08:59 08/30/16 09:06 81 MG Metoprolol Succinate (Toprol Xl Tab) 100 mg DAILY PO 08/30/16 09:00 09/29/16 08:59 08/30/16 09:07 100 MG Rosuvastatin Calcium (Crestor Tab) 20 mg DAILY PO 08/30/16 09:00 09/29/16 08:59 08/30/16 09:06 20 MG Morphine Sulfate (MoRPHine SULFATE INJ) 1 mg Q6H PRN IV 08/30/16 15:00 09/13/16 14:59 Review of Systems Review of Systems Constitutional: + chills, No fever Neurological: No dizzy, No passing out Endocrine: + excessive thirst, + too hot, + too cold, + tired/sluggish Gastrointestinal: + abdominal pain, + indigestion, + nausea, + vomiting Cardiovascular: + chest pain, + palpitations, + swelling ankles/feet Respiratory: No shortness of breath, No chronic cough Male : + frequent urination, + painful urination, + kidney stones, + nocturia more than once/night Physical Exam Vital Signs: Vital Signs Past 12 Hours Date Time Temp Pulse Resp B/P (MAP) Pulse Ox O2 Delivery O2 Flow Rate FiO2 08/30/16 07:25 Room Air 08/30/16 07:08 36.4 59 16 125/77 (93) 96 Room Air 08/30/16 04:02 73 172/89 (116) Physical Exam: General Appearance: WD/WN, no apparent distress, + obese Eyes: bilateral eyes normal inspection ENT: hearing grossly normal Neck: no adenopathy, no JVD, trachea midline Gastrointestinal: Abdomen: LLQ tenderness, pertinent finding (no guarding, no rebound, not distended. ) Renal: normal renal, pertinent finding (no cva tenderness bilaterally) Extremities: non-tender, normal inspection, no pedal edema, no calf tenderness , normal capillary refill Neurologic/Psychiatric: alert, normal mood/affect, oriented x 3 Skin: normal color, warm/dry, no rash Lymphatic: no adenopathy Assessment & Plan Assessment & Plan left ureteral stone his obstruction was so severe it seems he ruptured a calyceal fornix. The stone appears to have successfully passed on the ct scan. the fluid around the kidney should re-absorb. I will see him next week in Office and we will get an ultrasound if any symptoms remain I expect the abdominal soreness to resolve over next 3 days. Please return to ER for fever or severe pain. I encouraged him to transition to OTC non narcotic pain meds as quickly as possible to avoid constipation.
[2016-08-30 15:27] VITALS: BP 170/86; PULSE 68; TEMP 37.2; O2SAT 93
[2016-08-30 23:30] VITALS: BP 128/76; PULSE 68; TEMP 36.7; O2SAT 96
[2016-08-31 07:01] LABS: BASO % 0.3 %; BASO ABS # 0.02 K/uL (0-0.2); COMPLETE YES; EOS % 1.3 %; HEMATOCRIT 38.1 % (42-52); IG% 0.3 %; LYMPH ABS # 1.84 K/uL (1.2-3.4); MEAN CORPUSCULAR HEMOGLOBIN 27.1 pg (25-34); MEAN CORPUSCULAR HGB CONC 31.5 g/dl (32-36); MEAN PLATELET VOLUME 10.9 fL (7.4-10.4); MONO % 10.3 %; NEUT % 63.8 %; PLATELET COUNT 180 K/uL (130-400); RED BLOOD COUNT 4.43 M/uL (4.7-6.1); WHITE BLOOD COUNT 7.68 K/uL (4.8-10.8)
[2016-08-31 07:02] LABS: BUN/CREATININE RATIO 13.3 (10-20); CREATININE 1.5 mg/dl (0.60-1.40)
[2016-08-31 07:47] VITALS: BP 116/64; PULSE 58; TEMP 36.9; O2SAT 95
[2016-08-31] MEDS: ROSUVASTATIN CALCIUM 20 MG TAB PO SCH (08:14)
[2016-08-31] MEDS: TAMSULOSIN HCL 0.4 MG CAP PO SCH (08:15)
[2016-08-31] MEDS: ASPIRIN 81 MG ECTAB PO SCH (08:15)
[2016-08-31] MEDS: METOPROLOL SUCC 50MG EXT REL TAB PO SCH (08:16)
[2016-08-31] MEDS: ENOXAPARIN 40 MG/0.4 ML SYR SQ SCH (08:23)
[2016-08-31 10:32] VITALS: O2SAT 95
[2016-08-31 13:15] VITALS: BP 116/64; PULSE 58; TEMP 36.9; O2SAT 95
--- NOTE | 2016-08-31 13:29 | Progress Note ---
Internal Med Progress Note Date of Service: Aug 31, 2016. Provider Documentation: SUBJECTIVE: Seen and examined at bedside. State abdominal pain is resolved. Denies Nausea, vomiting, chest pain, SOB, palpitations, dizziness. Family at bedside. Eager to get discharged OBJECTIVE: Vital Signs-as noted below Physical Exam: General Appearance:Moderately built and nourished, no apparent distress Head: normocephalic, Atraumatic Eyes: normal inspection, EOMI, PERRL Neck: supple, Trachea midline Respiratory/Chest: Normal breath sounds, CTA Cardiovascular: S1, S2, No murmur Abdomen/GI:Soft, non tender, Bowel sounds present Extremities/Musculoskelatal:normal inspection, no edema Neurologic/Psych:grossly no focal neurological deficits Skin: normal color, warm Lab data as noted below. ASSESSMENT & PLAN: Patient is a 71 yr male with h/o nephrolithiasis, CAD presents with acute LLQ and L flank pain. Left Hydronephrosis L renal colic: Improved likely secondary to passage of renal stone Pain resolved currently, denies hematuria Continue IV Fluids, Flomax pain control Appreciate Urology Input Hypertensive urgency: Resolved Likely secondary to pain. Continue current meds Monitor ARIELLE: Likely secondary to obstruction secondary to above Continue NSS Monitor renal function CAD: stable Continue ASA, Statins and Toprol DVT Px: Lovenox Code Status: FULL CODE CT ABD: 1. Mild left hydronephrosis with extensive left perinephric fluid. Given the degree of perinephric fluid, this may suggest calyceal rupture. The presence of the left hip arthroplasty results in a significant artifact in the pelvis limiting evaluation of the distal left ureter. Within this limitation, hydroureteronephrosis with urothelial thickening and associated inflammatory changes most likely due to a recently passed stone. However, infection could also have this appearance. Correlate with urinalysis. 2. Bilateral atelectasis. The presence of mild wall thickening in the right lower lobe could also represent bronchitis and/or aspiration. 3. Cardiomegaly. 4. Diverticulosis. Disposition: Plan to discharge home today Follow up with your primary care physician on September 06, 2016 at 11: 00AM Follow up with your Urologist in 1 week as advised Get renal Ultrasound and blood test (Basic metabolic panel) and follow up with as advised Seek immediate medical attention if your symptoms reoccur or worsen Vital Signs: Date Time Temp Pulse Resp B/P (MAP) Pulse Ox O2 Delivery O2 Flow Rate FiO2 08/31/16 10:32 95 Room Air 08/31/16 08:00 Room Air 08/31/16 07:47 36.9 58 16 116/64 (81) 95 Room Air 08/30/16 23:30 36.7 68 16 128/76 (93) 96 Room Air 08/30/16 23:25 Room Air 08/30/16 15:27 37.2 68 18 170/86 (114) 93 Room Air 08/30/16 15:15 Room Air Lab Results: Results Past 24 Hours Test 08/31/16 05:59 Range/Units White Blood Count 7.68 4.8-10.8 K/uL Red Blood Count 4.43 4.7-6.1 M/uL Hemoglobin 12.0 14.0-18.0 g/dL Hematocrit 38.1 42-52 % Mean Corpuscular Volume 86.0 80-100 fL Mean Corpuscular Hemoglobin 27.1 25-34 pg Mean Corpuscular Hemoglobin Concent 31.5 32-36 g/dl Platelet Count 180 130-400 K/uL Mean Platelet Volume 10.9 7.4-10.4 fL Neutrophils (%) (Auto) 63.8 % Lymphocytes (%) (Auto) 24.0 % Monocytes (%) (Auto) 10.3 % Eosinophils (%) (Auto) 1.3 % Basophils (%) (Auto) 0.3 % Neutrophils # (Auto) 4.91 1.4-6.5 K/uL Lymphocytes # (Auto) 1.84 1.2-3.4 K/uL Monocytes # (Auto) 0.79 0.11-0.59 K/uL Eosinophils # (Auto) 0.10 0-0.5 K/uL Basophils # (Auto) 0.02 0-0.2 K/uL RDW Standard Deviation 47.0 36.4-46.3 fL RDW Coefficient of Variation 14.9 11.5-14.5 % Immature Granulocyte % (Auto) 0.3 % Immature Granulocyte # (Auto) 0.02 0.00-0.02 K/uL Sodium Level 140 136-145 mmol/L Potassium Level 4.0 3.5-5.1 mmol/L Chloride Level 109 98-107 mmol/L Carbon Dioxide Level 27 21-32 mmol/L Anion Gap 4.0 3-11 mmol/L Blood Urea Nitrogen 20 7-18 mg/dl Creatinine 1.50 0.60-1.40 mg/dl Est Creatinine Clear Calc Drug Dose 40.4 ml/min Estimated GFR () 54.3 Estimated GFR (Non- 46.8 BUN/Creatinine Ratio 13.3 10-20 Random Glucose 89 70-99 mg/dl Calcium Level 8.0 8.5-10.1 mg/dl
--- NOTE | 2016-08-31 13:33 | Discharge Summary ---
Discharge Summary Date of Service Aug 31, 2016. Discharge Summary Admission Date: Aug 30, 2016 at 01:57 Discharge Date: Aug 31, 2016 Discharge Disposition: Home Principal Diagnosis: Renal Colic, ARIELLE Procedures: CT ABD: 1. Mild left hydronephrosis with extensive left perinephric fluid. Given the degree of perinephric fluid, this may suggest calyceal rupture. The presence of the left hip arthroplasty results in a significant artifact in the pelvis limiting evaluation of the distal left ureter. Within this limitation, hydroureteronephrosis with urothelial thickening and associated inflammatory changes most likely due to a recently passed stone. However, infection could also have this appearance. Correlate with urinalysis. 2. Bilateral atelectasis. The presence of mild wall thickening in the right lower lobe could also represent bronchitis and/or aspiration. 3. Cardiomegaly. 4. Diverticulosis. Consultations: Urology Pending Studies/Follow-Up: Follow up with your primary care physician on September 06, 2016 at 11: 00AM Follow up with your Urologist in 1 week as advised Get renal Ultrasound and blood test (Basic metabolic panel) and follow up with as advised Seek immediate medical attention if your symptoms reoccur or worsen Medication Reconciliation Continued Medications: Aspirin (Aspirin Ec) 81 Mg Tab 81 MG PO DAILY Metoprolol Succ (Toprol Xl) (Toprol-Xl ) 100 Mg Tabcr 100 MG PO DAILY, TAB Rosuvastatin Calcium (Crestor) 40 Mg Tab 20 MG PO DAILY, TAB Admission Information HPI (per Admitting provider): 71 yo M with CAD and h/o nephrolithiasis presents with acute LLQ and L flank pain that began tonight around 11pm as he was heading to bed. The pain progressed and was severe; he was unable to qualify this further. He had a recent passage of kidney stone in Feb 2016 and was familiar with the feeling, so knew he needed to come to the ER. He denies any dysuria, hematuria, fevers or chills, nausea, vomiting, diarrhea, blood per rectum, headaches, chest pain or shortness of breath. He does report some chills and profuse sweating that was present with onset of the pain. He tried to take a shower but this didn't help the situation. He was seen by Dr. Sanchez as an outpatient in Feb 2016 and adding lemon or citrus juice was recommended as well as increasing his daily water intake. He states that he drinks lemonade but he is "not a big water drinker." He received morphine, dilaudid and IVF in the ER and is already feeling much better. His blood pressure was >200 systolic on arrival and is now down to 180 systolic with a pain level of 5/10. He reports only taking Toprol XL for BP and states that it normally runs normal when checked. CT a/p revealed evidence of a recently passed stone with some evidence of perinephric and periureteral stranding. The patient denies seeing a stone. Physical Exam (per Admitting): GEN: WNWD, in no acute distress, alert and appropriate HEENT: NC/AT, PERRL, normal sclerae, MMM, pharynx non-acute, no LAD CARDIO: reg rate, S1/2 heard without m/g/r LUNGS: CTA bilaterally, no crackles, rales or wheezes, good diaphragmatic excursion ABD: soft, mild TTP in LUQ>LLQ, non-distended, no rebound or guarding, +BS, + CVA tenderness on the L which is mild. EXTREMITY: RP and DP palpable 2+ bilat, no LE swelling or edema, extremities are warm and well-perfused NEURO: CN 2-12 grossly intact, sensation intact throughout MUSC: 5/5 strength throughout, no focal deficits SKIN: warm and dry Hospital Course Patient is a 71 yr male with h/o nephrolithiasis, CAD presents with acute LLQ and L flank pain. Left Hydronephrosis L renal colic: Improved likely secondary to passage of renal stone Pain resolved currently, denies hematuria Continue IV Fluids, Flomax pain control Appreciate Urology Input Hypertensive urgency: Resolved Likely secondary to pain. Continue current meds Monitor ARIELLE: Likely secondary to obstruction secondary to above Continue NSS Monitor renal function CAD: stable Continue ASA, Statins and Toprol DVT Px: Lovenox Code Status: FULL CODE CT ABD: 1. Mild left hydronephrosis with extensive left perinephric fluid. Given the degree of perinephric fluid, this may suggest calyceal rupture. The presence of the left hip arthroplasty results in a significant artifact in the pelvis limiting evaluation of the distal left ureter. Within this limitation, hydroureteronephrosis with urothelial thickening and associated inflammatory changes most likely due to a recently passed stone. However, infection could also have this appearance. Correlate with urinalysis. 2. Bilateral atelectasis. The presence of mild wall thickening in the right lower lobe could also represent bronchitis and/or aspiration. 3. Cardiomegaly. 4. Diverticulosis. Disposition: Plan to discharge home today Follow up with your primary care physician on September 06, 2016 at 11: 00AM Follow up with your Urologist in 1 week as advised Get renal Ultrasound and blood test (Basic metabolic panel) and follow up with as advised Seek immediate medical attention if your symptoms reoccur or worsen Total time spent on discharge = 33 minutes This includes examination of the patient, discharge planning, medication reconciliation, and communication with other providers. Discharge Instructions Discharge Instructions Date of Service Aug 31, 2016. Admission Reason for Admission: Renal Colic On Left Side Discharge Discharge Diagnosis / Problem: Renal Colic Discharge Goals Goal(s): Decrease discomfort, Improve function Activity Recommendations Activity Limitations: resume your previous activity Exercise/Sports Limitations: as tolerated . Instructions / Follow-Up Instructions / Follow-Up Follow up with your primary care physician on September 06, 2016 at 11: 00AM Follow up with your Urologist in 1 week as advised Get renal Ultrasound and blood test (Basic metabolic panel) and follow up with as advised Seek immediate medical attention if your symptoms reoccur or worsen Current Hospital Diet Patient's current hospital diet: AHA Diet (Heart Healthy) Discharge Diet Recommended Diet: AHA Diet (Heart Healthy) Pending Studies Studies pending at discharge: no Medical Emergencies . Who to Call and When: Medical Emergencies: If at any time you feel your situation is an emergency, please call 911 immediately. . Non-Emergent Contact Non-Emergency issues call your: Primary Care Provider, Urologist Call Non-Emergent contact if: you have a fever, your pain is not controlled, your pain is worsening, your pain is unusual for you, you have any medication questions . . "Provider Documentation" section prepared by Daniel Ghotra. . VTE Core Measure Inpt VTE Proph given/why not?: Enoxaparin (Lovenox)SQ
== END 2016-08-31 14:15 | disposition home or self-care (01) | DRG 694 ==
LOC: C.EDB 23:37 → C.MSN 08-30 01:57 → ENRESERV 08-30 02:11
PROVIDERS: ADMIT Hospitalist; ATTEND Internal Medicine
DX: N13.2 Hydronephrosis with renal and ureteral calculous obstruction (principal); I16.0 Hypertensive urgency; N17.9 Acute kidney failure, unspecified; I25.10 Atherosclerotic heart disease of native coronary artery without angina pectoris; K21.9 Gastro-esophageal reflux disease without esophagitis; E78.5 Hyperlipidemia, unspecified; K44.9 Diaphragmatic hernia without obstruction or gangrene; Z96.651 Presence of right artificial knee joint; I25.2 Old myocardial infarction; Z95.1 Presence of aortocoronary bypass graft; Z79.899 Other long term (current) drug therapy; Z79.82 Long term (current) use of aspirin